=== PATIENT | male | born 1965 | race Two or more races ===

== ENCOUNTER 2021-01-10 17:56 | Emergency (ER) | payer OTHER ==
[~2021-01-10] VITALS: Ht 167.6 cm; Wt 74.8 kg
[2021-01-10 18:07] VITALS: BP 151/90
--- NOTE | 2021-01-10 19:26 | NUR ---
gwendolyn thompson brought patient to bed 11 ambulatory for examination
--- NOTE | 2021-01-10 19:34 | NUR ---
SAID AT BEDSIDE FOR EXAM
[2021-01-10] MEDS ORDERED: IBUP-2213 PO (21:19)
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
== END 2021-01-10 21:45 | disposition home or self-care (01) ==
LOC: MED 17:56
DX: M25.552 Pain in left hip (principal); Z98.890 Other specified postprocedural states
CPT/HCPCS: 72170; 73502; 81002; 99284

== ENCOUNTER 2021-01-10 22:06 | Emergency (ER) | payer OTHER ==
[~2021-01-10] VITALS: Ht 167.6 cm; Wt 75.7 kg
[~2021-01-10 22:06] MED LIST: IBUP-2213 PO
[2021-01-10 22:57] VITALS: BP 176/79
--- NOTE | 2021-01-10 23:07 | NUR ---
PATIENT SENT TO [facility]
--- NOTE | 2021-01-10 23:14 | NUR ---
OBSERVED PATIENT PICKING AT HIS HEAD.
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
[2021-01-11 01:22] VITALS: BP 176/79
--- NOTE | 2021-01-11 01:23 | NUR ---
Patient discharged with v/s stable. Written and verbal after care instructions given and explained. Patient verbalized understanding. Ambulatory with steady gait. All questions addressed prior to discharge. Advised to follow up with PMD.
== END 2021-01-11 01:23 | disposition home or self-care (01) ==
LOC: MED 22:06
DX: R51.9 Headache, unspecified (principal); F23 Brief psychotic disorder; F12.90 Cannabis use, unspecified, uncomplicated; Z79.899 Other long term (current) drug therapy; Z98.890 Other specified postprocedural states
CPT/HCPCS: 70450; 99284

== ENCOUNTER 2022-04-23 13:34 | Emergency (ER) | payer OTHER ==
[~2022-04-23] VITALS: Ht 167.6 cm; Wt 86.2 kg
[2022-04-23 13:49] VITALS: BP 160/91
--- NOTE | 2022-04-23 13:56 | NUR ---
WAIT AT HIS CAR: RUBINA MALDONADO
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
[2022-04-23] MEDS ORDERED: IBUP-2213 PO (15:25)
--- NOTE | 2022-04-23 15:36 | NUR ---
Patient discharged with v/s stable. Written and verbal after care instructions ABOUT MEDICAL SCREENING EXAM given and explained. Patient alert, oriented and verbalized understanding of instructions. Ambulatory with steady gait. All questions addressed prior to discharge. ID band removed. Patient advised to follow up with PMD. Rx of IBUPROFEN given. Patient educated on indication of medication including possible reaction and side effects. Opportunity to ask questions provided and answered. PT GIVEN CLINIC TO FOLLOW UP. ADVISED TO CONTACT [facility] FOR PCP AND REFERRAL
== END 2022-04-23 15:36 | disposition home or self-care (01) ==
LOC: MED 13:34
DX: F23 Brief psychotic disorder (principal); M79.18 Myalgia, other site; Z79.1 Long term (current) use of non-steroidal anti-inflammatories (NSAID)
CPT/HCPCS: 99282